=== PATIENT | female | born 1940 | race Caucasian/White ===

== ENCOUNTER 2018-05-18 08:30 | Inpatient (IN) | payer OTHER ==
[~2018-05-18] VITALS: Ht 91.4 cm; Wt 5.0 kg
[2018-05-18] MEDS ORDERED: ADULT ASPIRIN81 MG (13:17)
[2018-05-18] MEDS ORDERED: PLAVIX75 MG (13:17)
[2018-05-18] MEDS ORDERED: CLONAZEPAM0.5 MG (13:17)
[2018-05-18] MEDS ORDERED: GRALISE600 MG (13:18)
[2018-05-18] MEDS ORDERED: RANEXA500 MG (13:18)
[2018-05-18] MEDS ORDERED: ISOSORBIDE MONO60 MG (13:18)
[2018-05-18] MEDS ORDERED: ISOSORBIDE MONO30 MG (13:18)
[2018-05-18] MEDS ORDERED: CRESTOR10 MG (13:19)
[2018-05-18] MEDS ORDERED: [UNRECOGNIZED DRUG - OTHER] (13:20)
[2018-05-18] MEDS ORDERED: TURMERIC500 M1 (13:20)
[2018-05-18] MEDS ORDERED: VITAMINA D (13:20)
[2018-06-09] MEDS ORDERED: RANEXA500 MG PO (12:00)
[2018-06-09] MEDS ORDERED: ASA-EC81 MG PO (12:01)
[2018-06-11] MEDS ORDERED: PERCOCET 5-3251 EACH PO (09:00)
[2018-06-11] MEDS ORDERED: ELIQUIS2.5 MG PO (09:00)
[2018-06-11] MEDS ORDERED: CEFADROXIL500 MG PO (09:00)
== END 2018-06-11 12:09 | disposition home or self-care (01) | DRG 470 ==
LOC: SURH 05-25 07:00 → O/R 06-08 06:58 → SURH 06-08 06:58
PROVIDERS: Orthopaedic Surgery
PROC: 0MNN0ZZ Release Right Knee Bursa and Ligament, Open Approach (ICD-10-PCS; 2018-06-08)
PROC: 0SRC0J9 Replacement of Right Knee Joint with Synthetic Substitute, Cemented, Open Approach (ICD-10-PCS; principal; 2018-06-08 12:30)
DX: M17.11 Unilateral primary osteoarthritis, right knee (principal); D62 Acute posthemorrhagic anemia; M81.0 Age-related osteoporosis without current pathological fracture; I25.10 Atherosclerotic heart disease of native coronary artery without angina pectoris; I11.9 Hypertensive heart disease without heart failure; E66.8 Other obesity; M22.11 Recurrent subluxation of patella, right knee

== ENCOUNTER 2024-02-06 18:39 | Emergency (ER) | payer OTHER ==
[~2024-02-06] VITALS: Ht 160 cm; Wt 71.7 kg
[~2024-02-06 18:39] MED LIST: ADULT ASPIRIN81 MG; ASA-EC81 MG PO; CEFADROXIL500 MG PO; CLONAZEPAM0.5 MG; CRESTOR10 MG; ELIQUIS2.5 MG PO; GRALISE600 MG; ISOSORBIDE MONO30 MG; ISOSORBIDE MONO60 MG; PERCOCET 5-3251 EACH PO; PLAVIX75 MG; RANEXA500 MG; RANEXA500 MG PO; TURMERIC500 M1; VITAMINA D; [UNRECOGNIZED DRUG - OTHER]
[2024-02-06] MEDS ORDERED: SYNTHROID75 MCG (19:09)
[2024-02-06] MEDS ORDERED: TRAMADOL HCL 50 MG TABLET PO STA (20:17)
[2024-02-06] MEDS ORDERED: KETOROLAC TROMETHAMINE 15 MG VIAL IV STA (20:17)
[2024-02-06] MEDS ORDERED: KETOROLAC TROMETHAMINE 30 MG VIAL ONE (20:56)
== END 2024-02-06 22:31 | disposition home or self-care (01) ==
LOC: ER 18:40
DX: G50.0 Trigeminal neuralgia (principal); Z88.8 Allergy status to other drugs, medicaments and biological substances

== ENCOUNTER 2024-08-09 14:46 | Outpatient (CLI) | payer OTHER ==
[~2024-08-09 14:46] MED LIST changes: +SYNTHROID75 MCG
== END 2024-08-09 14:53 | disposition home or self-care (01) ==
LOC: SONOGRAMA 14:46
PROVIDERS: ATTEND Internal Medicine
DX: K76.0 Fatty (change of) liver, not elsewhere classified (principal)

== ENCOUNTER 2024-11-07 10:36 | Outpatient (CLI) | payer OTHER | END 2024-11-07 10:39 | disposition home or self-care (01) | LOC: NUCLEAR 10:36 | PROVIDERS: ATTEND Internal Medicine | DX: R00.2 Palpitations (principal) ==

== ENCOUNTER 2024-11-07 15:08 | Outpatient (CLI) | payer OTHER | END 2024-11-08 15:11 | disposition home or self-care (01) | LOC: TOM 15:08 | PROVIDERS: ATTEND Internal Medicine | DX: R55 Syncope and collapse (principal) ==